=== PATIENT | male | born 1955 | race Caucasian/White ===

== ENCOUNTER 2016-09-23 19:40 | Emergency (ER) | payer OTHER ==
[2016-09-23 20:27] LABS: BASOPHIL# 0.1 X 10^3uL (0.0-0.1); BASOPHILS 0.6 % (0.0-2.0); EOSINOPHILS 1.5 % (0.0-6.0); EOSINOPHILS# 0.1 X 10^3uL (0.0-0.4); HEMATOCRIT 44.9 % (42.0-54.0); HEMOGLOBIN 15.6 g/dL (14.0-18.0); LYMPHOCYTES 17.6 % (20.0-40.0); LYMPHOCYTES# 1.8 X 10^3uL (0.8-3.8); MEAN CELL VOLUME 87.1 fL (80.0-100.0); MEAN CORPUS. HGB CONCENTRATION 34.8 g/dL (32.0-36.0); MEAN CORPUSCULAR HEMOGLOBIN 30.3 pg (29.0-35.0); MEAN PLATELET VOLUME 8.5 fL (7.4-10.4); MONOCYTES 6.1 % (2.0-10.0); MONOCYTES# 0.6 X 10^3uL (0.2-1.0); NEUTROPHILS 74.2 % (54.0-75.0); NEUTROPHILS# 7.4 X 10^3uL (2.6-6.7); RED BLOOD COUNT 5.16 X 10^6uL (4.20-6.10); RED CELL DISTRIBUTION WIDTH 12.5 % (11.5-14.5)
[2016-09-23 20:40] LABS: ALBUMIN 4.6 g/dL (3.5-5.0); BILIRUBIN, DIRECT 0.2 mg/dL (0.0-0.4); BILIRUBIN, TOTAL 0.9 mg/dL (0.2-1.3); CALCIUM 10.1 mg/dL (8.4-10.2); POTASSIUM 4.3 mmol/L (3.5-5.1); TOTAL PROTEIN 8.3 g/dL (6.3-8.2)
--- NOTE | 2016-09-23 21:24 | ER PHYSICIAN DOCUMENTATION ---
Physician Documentation [facility] Name:Gaudencio Avelar Age:61 yrs Sex:Male :1955 Arrival Date:09/23/2016 Time:19:40 Bed4 Private MD: Rickey Tadeo Disposition: 09/23/16 21:12 Discharged to Home/Self Care. Impression: Cholelithiasis w/ Colic. - Condition is Good. - Discharge Instructions: ABDOMINAL PAIN Gallstone Presumed - BILIARY COLIC w/Gallstone (presumd). - Medical Reconciliation form form. - Follow up: Private Physician; When: 1 week; Reason: Recheck today's complaints. - Problem is new. - Symptoms have improved. HPI: 09/23 21:07 This 61 yrs old Male presents to ER via Wheelchair with complaints of sc Abdominal Pain. 21:07 The patient presents with abdominal pain. Onset: The symptoms/episode began/occurred 2 sc hour(s) ago. The symptoms do not radiate. Associated signs and symptoms: Pertinent positives: nausea. The symptoms are described as constant. Modifying factors: the symptoms are aggravated by pork chops at 1730. Severity of pain: At its worst the pain was severe in the emergency department the pain has improved. The patient has experienced a previous episode, approximately 2 years ago. Historical: - Allergies: No known drug Allergies; - Tetanus: < 10 years. - Ebola Screening: : Patient negative for fever greater than or equal to 101.5 degrees Fahrenheit, and additional compatible Ebola Virus Disease symptoms. Patient denies exposure to infectious person. Patient denies travel to an Ebola-affected area in the 21 days before illness onset. No symptoms or risks identified at this time. . - Immunization history: Flu Vaccine < 1 year. - Social history: Smoking status: Patient states was never smoker of tobacco. ROS: 21:08 Constitutional: Negative for fever, chills, and weight loss. sc Eyes: Negative for injury, pain, redness, and discharge. ENT: Negative for injury, pain, and discharge. Neck: Negative for injury, pain, and swelling. Cardiovascular: Negative for chest pain, palpitations, and edema. Respiratory: Negative for shortness of breath, cough, wheezing, and pleuritic chest pain. Back: Negative for injury and pain. MS/Extremity: Negative for injury and deformity. Skin: Negative for injury, rash, and discoloration. 21:08 Neuro: Negative for headache, weakness, numbness, tingling, and seizure. sc 21:08 Abdomen/GI: Positive for abdominal pain, nausea. Exam: Constitutional: This is a well developed, well nourished patient who is awake, alert, and in no acute distress. Head/Face: Normocephalic, atraumatic. Eyes: Pupils equal round and reactive to light, extra-ocular motions intact. Lids and lashes normal. Conjunctiva and sclera are non-icteric and not injected. Cornea within normal limits. Periorbital areas with no swelling, redness, or edema. ENT: Nares patent. No nasal discharge, no septal abnormalities noted. Tympanic membranes are normal and external auditory canals are clear. Oropharynx with no redness, swelling, or masses, exudates, or evidence of obstruction, uvula midline. Mucous membranes moist. Neck: Trachea midline, no thyromegaly or masses palpated, and no cervical lymphadenopathy. Supple, full range of motion without nuchal rigidity, or vertebral point tenderness. No meningismus. Chest/axilla: Normal chest wall appearance and motion. Nontender with no deformity. No lesions are appreciated. Cardiovascular: Regular rate and rhythm with a normal S1 and S2. No gallops, murmurs, or rubs. Normal PMI, no JVD. No pulse deficits. Back: No spinal tenderness. No costovertebral tenderness. Full range of motion. 21:08 Skin: Warm, dry with normal turgor. Normal color with no rashes, no lesions, and no sc evidence of cellulitis. 21:08 Abdomen/GI: Inspection: abdomen appears normal, Bowel sounds: normal, Palpation: severe abdominal tenderness, in the right upper quadrant, Liver: no appreciated palpable abnormalities. Vital Signs: 19:52 BP 141 / 204; Pulse 99; Resp 21; Temp 98(T); Pulse Ox 95% on R/A; Weight 90.72 kg; Pain bw2 10/10; MDM: 19:45 Patient medically screened. sc 21:09 Differential diagnosis: appendicitis, cholecystitis, Cholelithiasis, diverticulitis. de Data reviewed: vital signs, nurses notes, lab test result(s), and as a result, I will discharge patient. Counseling: I had a detailed discussion with the patient and/or guardian regarding: the historical points, exam findings, and any diagnostic results supporting the discharge/admit diagnosis, the need for outpatient follow up, for a referral to a specialist. 09/23 20:29 Order name: CBC AUTO DIF, MDIF/RMOR IF IND; Complete Time: 20:47 EDMS 09/23 20:41 Order name: BASIC METABOLIC PANEL; Complete Time: 20:47 EDMS 09/23 20:41 Order name: HEPATIC PANEL; Complete Time: 20:47 EDMS 09/23 20:41 Order name: LIPASE; Complete Time: 20:47 EDMS 09/23 20:11 Order name: NPO; Complete Time: 20:27 sc 09/23 20:11 Order name: Urine Dip; Complete Time: 20:27 sc Dispensed Medications: 19:54 Drug: Toradol 30 mg; Route: IVP; Site: left antecubital; bw2 20:40 Follow up: Response: Pain is decreased bw2 19:54 Drug: Zofran 4 mg; Route: IVP; Infused Over: 2 mins; Site: left antecubital; bw2 20:40 Follow up: Response: Nausea is decreased bw2 20:09 Drug: NS 0.9% 1000 ml; Route: IV; Rate: bolus; Site: left antecubital; bw2 21:19 Follow up: IV Status: Completed infusion bw2 20:23 Drug: Dilaudid 1 mg; Route: IVP; Site: left antecubital; bw2 20:40 Follow up: Response: Pain is decreased bw2 21:18 Drug: HYDROcodone-acetaminophen (5mg/325 mg) 1-2 tabs 1 tabs; Route: PO; bw2 21:18 Follow up: Response: Pharmacy closed - take home med pack bw2 21:18 Drug: Zofran 1 tablet; Route: PO; bw2 21:19 Follow up: Response: Pharmacy closed - take home med pack bw2 Point of Care Testing: Urine Dip: 20:26 pH: 8.5; ; Specific [place]: 1.015; Ketones: Negative; Glucose: Negative; Protein: bw2 Negative; Leukocytes: Negative; Nitrite: Negative ; Blood: Negative; Bilirubin: Negative ; Urobilinogen: Normal Signatures: Rickey Pederson MD MD sc Wisely, Beth bw2
--- NOTE | 2016-09-23 21:24 | ER NURSING DOCUMENTATION ---
Nurse's Notes [facility] Name:Gaudencio Avelar Age:61 yrs Sex:Male :1955 Arrival Date:09/23/2016 Time:19:40 Bed4 Private MD: Diagnosis:Cholelithiasis w/ Colic Presentation: 09/23 19:42 Acuity: ERIN 3 bw2 19:45 Presenting complaint: Patient states: right sided abdominal pain that radiates to right bw2 flank. Transition of care: patient was not received from another setting of care. 19:45 Method Of Arrival: Wheelchair bw2 Triage Assessment: 19:45 General: Appears uncomfortable, Behavior is appropriate for age. Pain: Complains of bw2 pain in right sided flank. GI: Reports nausea. Historical: - Allergies: No known drug Allergies; - Tetanus: < 10 years. - Ebola Screening: : Patient negative for fever greater than or equal to 101.5 degrees Fahrenheit, and additional compatible Ebola Virus Disease symptoms. Patient denies exposure to infectious person. Patient denies travel to an Ebola-affected area in the 21 days before illness onset. No symptoms or risks identified at this time. . - Immunization history: Flu Vaccine < 1 year. - Social history: Smoking status: Patient states was never smoker of tobacco. Screenin:54 Infectious Disease Risk None. Abuse screen: Denies threats or abuse. Nutritional bw2 screening: No deficits noted. Assessment: 19:54 See Triage Assessment done by same RN. bw2 21:23 GI: Bowel sounds present X 4 quads. Abdomen is tender to palpation in right upper bw2 quadrant. Vital Signs: 19:52 BP 141 / 204; Pulse 99; Resp 21; Temp 98(T); Pulse Ox 95% on R/A; Weight 90.72 kg; Pain bw2 10/10; ED Course: 19:42 Patient arrived in ED. jt 19:42 Soco Higginbotham is Primary Nurse. bw2 19:42 Triage completed. bw2 19:45 Rickey Pederson MD is Attending Physician. sc 19:54 Valuables Remains with patient Patient has correct armband on for positive bw2 identification. 19:55 Inserted peripheral IV: 18 gauge in left antecubital area and blood collected. bw2 Administered Medications: 19:54 Drug: Toradol 30 mg; Route: IVP; Site: left antecubital; bw2 20:40 Follow up: Response: Pain is decreased bw2 19:54 Drug: Zofran 4 mg; Route: IVP; Infused Over: 2 mins; Site: left antecubital; bw2 20:40 Follow up: Response: Nausea is decreased bw2 20:09 Drug: NS 0.9% 1000 ml; Route: IV; Rate: bolus; Site: left antecubital; bw2 21:19 Follow up: IV Status: Completed infusion bw2 20:23 Drug: Dilaudid 1 mg; Route: IVP; Site: left antecubital; bw2 20:40 Follow up: Response: Pain is decreased bw2 21:18 Drug: HYDROcodone-acetaminophen (5mg/325 mg) 1-2 tabs 1 tabs; Route: PO; bw2 21:18 Follow up: Response: Pharmacy closed - take home med pack bw2 21:18 Drug: Zofran 1 tablet; Route: PO; bw2 21:19 Follow up: Response: Pharmacy closed - take home med pack bw2 Point of Care Testing: Urine Dip: 20:26 pH: 8.5; ; Specific [place]: 1.015; Ketones: Negative; Glucose: Negative; Protein: bw2 Negative; Leukocytes: Negative; Nitrite: Negative ; Blood: Negative; Bilirubin: Negative ; Urobilinogen: Normal Outcome: 21:12 Discharge ordered by MD. calderon 21:22 Discharged to home ambulatory, with family. bw2 21:22 Condition: good 21:22 Discharge Assessment: Patient awake, alert and oriented x 3. No cognitive and/or functional deficits noted. Patient verbalized understanding of disposition instructions. 21:22 Discharge instructions given to patient, significant other, Instructed on discharge instructions, follow up and referral plans. medication usage, Demonstrated understanding of instructions, medications. 21:23 Patient left the ED. 2 09/24 10:37 Discharge F/U Call: Unable to reach: no answer st Signatures: Yocasta Madison RN RN st Chew, Scott, MD MD sc Tennant, Grace Ayersh bw2
== END 2016-09-23 21:24 | disposition home or self-care (01) ==
LOC: ER 19:40
DX: K80.20 Calculus of gallbladder without cholecystitis without obstruction (principal); R11.0 Nausea
CPT/HCPCS: 80048; 80076; 83690; 85025; 96361; 96374; 96375; 99284